=== PATIENT | male | born 1945 | race Caucasian/White ===

== ENCOUNTER → 2017-12-08 | Outpatient (CLI) | payer OTHER ==
[~2017-12-08] MED LIST: ADVAIR HFA120 INHALA IH; AMOXICILLIN500 MG PO; ATORVASTATIN CA80 MG PO; CALCIUM CITRAT1 EAC3 PO; LEVOFLOXACIN750 MG PO; LOPRESSOR25 MG PO; LOPRESSOR50 MG PO; LOW DOSE ASPIRI81 M1 PO; MAG-OXIDE400 MG PO; MEN'S MULTI-VI1 EACH PO; MUCINEX1200 MG PO; MUCINEX600 MG PO; PEPCID COMPLET1 EACH PO; PREDNISONE10 MG PO; PRILOSEC20 MG PO; SPIRIVA1 INHALATI IH; VENTOLIN HFA18 GM IH; VITAMIN B-650 M1 PO; VITAMIN C1000 MG PO; VITAMIN D31000 UNIT PO; ZOFRAN4 MG PO
== END | disposition home or self-care (01) ==
LOC: NUC 09:50
DX: M26.69 Other specified disorders of temporomandibular joint (principal); M47.897 Other spondylosis, lumbosacral region
CPT/HCPCS: 78306; A9503

== ENCOUNTER → 2018-03-01 | Outpatient (CLI) | payer MEDICARE, OTHER | END | disposition home or self-care (01) | LOC: CDC 15:54 | DX: Z01.810 Encounter for preprocedural cardiovascular examination (principal); N40.1 Benign prostatic hyperplasia with lower urinary tract symptoms; N32.0 Bladder-neck obstruction; C61 Malignant neoplasm of prostate; R00.1 Bradycardia, unspecified | CPT/HCPCS: 93000 ==